=== PATIENT | female | born 1990 | race American Indian/Alaskan Native ===

== ENCOUNTER 2019-02-23 10:17 | Emergency (ER) | payer OTHER ==
[2019-02-23 10:24] VITALS: BP 112/74
[2019-02-23 10:58] LABS: HCG Qualitative,Urine Negative (Negative)
[2019-02-23 11:00] LABS: Bilirubin,Urine NEG (Negative); Blood,Urine MOD (Negative); Color,Urine Yellow (Yellow); Mucus,Urine 1+ /HPF; Protein,Urine <15 mg/dL mg/dL (Negative); Urobilinogen,Urine < 2.0 mg/dL (<2.0)
[2019-02-23 11:18] LABS: Basophils % (Auto) 0.6 % (0.0-1.8); Eosinophils % (Auto) 0.4 % (0.0-4.3); Hematocrit 39.4 % (30.3-42.9); Hemoglobin 13.7 gm/dl (10.1-14.3); Lymphocytes % (Auto) 49.9 % (13.4-35.0); Mean Corpuscular HGB Conc 35 % (30-34); Mean Corpuscular Volume 98 fl (79-97); Monocytes # (Auto) 0.3 K/mm3 (0.0-0.8); Monocytes % (Auto) 8.1 % (0.0-7.3); Platelet Count 170 K/mm3 (140-440); Red Blood Count 4.01 M/mm3 (3.65-5.03); Red Cell Distribution Width 12.6 % (13.2-15.2)
[2019-02-23 11:38] LABS: BUN/Creatinine Ratio 16; Blood Urea Nitrogen 13 mg/dL (7-17); Calcium 9.7 mg/dL (8.4-10.2); Hemolysis Index 7
--- NOTE | 2019-02-23 13:10 | Emergency Department Report ---
ED Dysuria HPI - HPI Chief Complaint: Abdominal Pain Stated Complaint: BLADDER PROBLEMS Time Seen by Provider: 02/23/19 12:00 Duration: 2 Days Location of Discomfort: Flank Severity: Mild Symptoms: Dysuria: Yes, Frequency: Yes, Suprapubic Pain: No, Flank Pain: Yes, Fever: No, Hematuria: No, Abdominal Pain: No, Previous UTI's: Yes ED Review of Systems ROS: Stated complaint: BLADDER PROBLEMS Other details as noted in HPI Comment: All other systems reviewed and negative Constitutional: denies: chills, fever Eyes: denies: eye pain, eye discharge, vision change ENT: denies: ear pain, throat pain Respiratory: denies: cough, shortness of breath, wheezing Cardiovascular: denies: chest pain, palpitations Endocrine: no symptoms reported Gastrointestinal: denies: abdominal pain, nausea, diarrhea Genitourinary: dysuria, frequency, hematuria. denies: urgency, discharge Musculoskeletal: denies: back pain, joint swelling, arthralgia Skin: denies: rash, lesions Neurological: denies: headache, weakness, paresthesias Psychiatric: denies: anxiety, depression Hematological/Lymphatic: denies: easy bleeding, easy bruising ED Past Medical Hx - Past Medical History Previous Medical History?: No - Surgical History Past Surgical History?: No - Social History Smoking Status: Never Smoker Substance Use Type: Alcohol, Marijuana - Medications Home Medications: Home Medications Medication Instructions Recorded Confirmed Last Taken Type Nitrofurantoin Williams/M-Cryst 100 mg PO Q12HR #14 capsule 02/23/19 Unknown Rx [Macrobid CAP] Dysuria Exam - Exam General: Vital signs noted. No distress. Alert and acting appropriately. Exam: Yes Moist Mucous Membranes, No CVA Tenderness, No Abdominal Tenderness, No Rigidity or Guarding Labs: Lab Results 02/23/19 02/23/19 02/23/19 Range/Units 10:33 10:58 10:58 WBC 4.1 L (4.5-11.0) K/mm3 RBC 4.01 (3.65-5.03) M/mm3 Hgb 13.7 (10.1-14.3) gm/dl Hct 39.4 (30.3-42.9) % MCV 98 H (79-97) fl MCH 34 H (28-32) pg MCHC 35 H (30-34) % RDW 12.6 L (13.2-15.2) % Plt Count 170 (140-440) K/mm3 Lymph % (Auto) 49.9 H (13.4-35.0) % Williams % (Auto) 8.1 H (0.0-7.3) % Eos % (Auto) 0.4 (0.0-4.3) % Baso % (Auto) 0.6 (0.0-1.8) % Lymph # 2.0 (1.2-5.4) K/mm3 Williams # 0.3 (0.0-0.8) K/mm3 Eos # 0.0 (0.0-0.4) K/mm3 Baso # 0.0 (0.0-0.1) K/mm3 Seg Neutrophils % 41.0 (40.0-70.0) % Seg Neutrophils # 1.7 L (1.8-7.7) K/mm3 Sodium 140 (137-145) mmol/L Potassium 4.2 (3.6-5.0) mmol/L Chloride 102.6 (98-107) mmol/L Carbon Dioxide 28 (22-30) mmol/L Anion Gap 14 mmol/L BUN 13 (7-17) mg/dL Creatinine 0.8 (0.7-1.2) mg/dL Estimated GFR > 60 ml/min BUN/Creatinine Ratio 16 % Glucose 85 (65-100) mg/dL Calcium 9.7 (8.4-10.2) mg/dL Urine Color Yellow (Yellow) Urine Turbidity Clear (Clear) Urine pH 5.0 (5.0-7.0) Ur Specific [place] 1.025 (1.003-1.030) Urine Protein <15 mg/dl (Negative) mg/dL Urine Glucose (UA) Neg (Negative) mg/dL Urine Ketones Neg (Negative) mg/dL Urine Blood Mod (Negative) Urine Nitrite Neg (Negative) Ur Reducing Substances Not Reportable Urine Bilirubin Neg (Negative) Urine Ictotest Not Reportable Urine Urobilinogen < 2.0 (<2.0) mg/dL Ur Leukocyte Esterase Neg (Negative) Urine WBC (Auto) 4.0 (0.0-6.0) /HPF Urine RBC (Auto) 7.0 (0.0-6.0) /HPF U Epithel Cells (Auto) 1.0 (0-13.0) /HPF Urine Mucus 1+ /HPF Urine HCG, Qual Negative (Negative) ED Course Vital Signs 02/23/19 10:23 Temperature 97.9 F Pulse Rate 50 L Respiratory 16 Rate Blood Pressure 112/74 O2 Sat by Pulse 100 Oximetry ED Medical Decision Making - Lab Data Result diagrams: 02/23/19 10:58 02/23/19 10:58 - Medical Decision Making 29-year-old female presents with a urinary tract infection ED course: Urinalysis is positive for hematuria and normal otherwise, all other labs within normal limits. I discussed this findings with the patient. I discussed the patient to make sure he completes all of the antibiotic dose ev en until symptoms resolve. Patient is in no acute distress, patient also has on instructions were given to him. He had on exam for ED stay. Discussed follow-up with primary care physician. Critical care attestation.: If time is entered above; I have spent that time in minutes in the direct care of this critically ill patient, excluding procedure time. ED Disposition Clinical Impression: Hematuria, Cystitis Disposition: - TO HOME OR SELFCARE Is pt being admited?: No Does the pt Need Aspirin: No Condition: Stable Instructions: Abdominal Pain (ED), Urinary Tract Infection in Women (ED), Flank Pain (ED) Additional Instructions: Make sure to follow up with the primary care physician as discussed. Take all your medications as you've been prescribed. If you have any worsening symptoms or develop new symptoms please return to ED immediately. Prescriptions: Nitrofurantoin Williams/M-Cryst [Macrobid CAP] 100 mg PO Q12HR #14 capsule Referrals: LEANN HERMOSILLO MD [Primary Care Provider] - 3-5 Days [facility] [Outside] - 3-5 Days [facility] [Outside] - 3-5 Days Forms: Work/School Release Form(ED) Time of Disposition: 13:11
== END 2019-02-23 13:26 | disposition home or self-care (01) ==
LOC: ED 10:17
DX: N30.90 Cystitis, unspecified without hematuria (principal); F12.10 Cannabis abuse, uncomplicated
CPT/HCPCS: 36415; 80048; 81001; 81025; 85025; 87076; 87086; 87186; 99283

== ENCOUNTER 2020-06-05 18:43 | Emergency (ER) | payer MEDICAID ==
[2020-06-05 19:31] VITALS: BP 136/67
--- NOTE | 2020-06-05 20:28 | XRay Report ---
CHEST PA AND LATERAL VIEWS INDICATION: Productive cough. COMPARISON: None. FINDINGS: Support devices: None. Heart: Within normal limits. Lungs/Pleura: No acute pulmonary or pleural findings. IMPRESSION: 1. No acute findings. Signer Name: Jarad Tillman MD Signed: 06/05/2020 8:23 PM Workstation Name: [id number]
[2020-06-06 02:00] LABS: Hematocrit 42.1 % (30.3-42.9); Hemoglobin 14.5 gm/dl (10.1-14.3); Mean Corpuscular HGB Conc 34 % (30-34); Mean Corpuscular Volume 98 fl (79-97); Platelet Count 266 K/mm3 (140-440); Red Cell Distribution Width 12.5 % (13.2-15.2)
--- NOTE | 2020-06-06 02:08 | Cat Scan Report ---
CT HEAD/BRAIN WO CON INDICATION / CLINICAL INFORMATION: Patient complains of a headache and dizziness.. TECHNIQUE: All CT scans at this location are performed using CT dose reduction for ALARA by means of automated e xposure control. COMPARISON: None available. FINDINGS: The ventricular system is normal in size and configuration. No focal lesion or mass effect is seen. T here is no evidence of intracranial hemorrhage or major vessel occlusion. There is a mild amount of fluid in both maxillary sinuses with a minimal amount of fluid or mucosal t hickening in the sphenoid sinus. The other paranasal sinuses and mastoid air cells are clear. IMPRESSION: 1. No acute intracranial abnormality. 2. Mild bilateral maxillary and sphenoid sinusitis. Signer Name: Serafin Almanzar MD Signed: 06/06/2020 2:03 AM Workstation Name: [id number]
[2020-06-06 02:21] LABS: BUN/Creatinine Ratio 13; Blood Urea Nitrogen 10 mg/dL (7-17); Calcium 10.1 mg/dL (8.4-10.2); Hemolysis Index 33
--- NOTE | 2020-06-06 04:00 | Emergency Department Report ---
ED Dizziness HPI - General Chief Complaint: Dizziness Stated Complaint: DIZZY Time Seen by Provider: 06/06/20 00:21 Source: patient Mode of arrival: Ambulatory Limitations: No Limitations - History of Present Illness Initial Comments: 30-year-old Marshallese female that emerge department complaining of a few few hour history of cough congestion and coryza associated with nausea dull headache off and on and some presyncope clear nasal discharge of unknown etiology. Ports no chest pain, no shortness of breath, no hemoptysis no hematemesis no hematochezia no abdominal pain, no hematuria no dysuria no hematochezia no known contact with the coronavirus no foreign travel. She did take an [employer] earlier which did not resolve her symptoms there have been no provocative factors to her knowledge. MD Complaint: dizziness, lightheadedness Description: lightheadedness History of Same: No History of Trauma: No Severity: mild Improves With: nothing Worsens With: nothing Associated Symptoms: cough, fever/chills, other (Patient complaining above light headedness and dizziness. States that she does not get headaches this is very unusual for her and the discomfort she is having is becoming to get increasingly more uncomfortable. She reports having's a vague episode of of blurred vision but no loss of vision. She reports no fever. No head trauma.). denies: chest pain, confusion, loss of appetite, syncope, weakness - Related Data Previous Rx's Medication Instructions Recorded Last Taken Type Nitrofurantoin [place]/M-Cryst 100 mg PO Q12HR #14 capsule 02/23/19 Unknown Rx [Macrobid CAP] Amoxicillin/Potassium Clav 1 each PO BID #20 tablet 06/06/20 Unknown Rx [Augmentin 875-125 Tablet] predniSONE [Deltasone] 20 mg PO QDAY #7 tab 06/06/20 Unknown Rx Allergies Allergy/AdvReac Type Severity Reaction Status Date / Time No Known Allergies Allergy Unverified 02/23/19 10:18 ED Review of Systems ROS: Stated complaint: DIZZY Other details as noted in HPI Comment: All other systems reviewed and negative ED Past Medical Hx - Past Medical History Previous Medical History?: No - Surgical History Past Surgical History?: No - Social History Smoking Status: Never Smoker Substance Use Type: None - Medications Home Medications: Home Medications Medication Instructions Recorded Confirmed Last Taken Type Nitrofurantoin Atlantic/M-Cryst 100 mg PO Q12HR #14 capsule 02/23/19 Unknown Rx [Macrobid CAP] Amoxicillin/Potassium Clav 1 each PO BID #20 tablet 06/06/20 Unknown Rx [Augmentin 875-125 Tablet] predniSONE [Deltasone] 20 mg PO QDAY #7 tab 06/06/20 Unknown Rx ED Physical Exam - General Limitations: No Limitations General appearance: alert, in no apparent distress - Head Head exam: Present: atraumatic, normocephalic - Eye Eye exam: Present: normal appearance, PERRL, EOMI Pupils: Present: normal accommodation - ENT ENT exam: Present: mucous membranes moist, other (Nasal congestion tenderness to percussion of the maxillary sinuses well. Posterior sinus region) - Expanded ENT Exam Expanded TM/Canal exam: Effusion: Right TM Throat exam: Negative: tonsillomegaly, tonsillar exudate, R peritonsillar mass - Neck Neck exam: Present: normal inspection, full ROM - Respiratory Respiratory exam: Present: normal lung sounds bilaterally. Absent: respiratory distress, rales, rhonchi, chest wall tenderness, accessory muscle use, decreased breath sounds - Cardiovascular Cardiovascular Exam: Present: regular rate, normal rhythm. Absent: systolic murmur, diastolic murmur, rubs, gallop - GI/Abdominal GI/Abdominal exam: Present: soft, normal bowel sounds - Extremities Exam Extremities exam: Present: normal inspection, normal capillary refill - Back Exam Back exam: Present: normal inspection. Absent: CVA tenderness (R), CVA tenderness (L) - Neurological Exam Neurological exam: Present: alert, oriented X3, CN II-XII intact - Psychiatric Psychiatric exam: Present: normal affect, normal mood - Skin Skin exam: Present: warm, dry, intact, normal color. Absent: rash ED Course Vital Signs 06/05/20 06/05/20 06/06/20 19:25 19:56 03:55 Temperature 99.1 F 99.1 F Pulse Rate 85 86 Respiratory 18 17 Rate Blood Pressure 136/67 O2 Sat by Pulse 99 100 Oximetry ED Medical Decision Making - Lab Data Result diagrams: 06/06/20 01:19 06/06/20 01:19 - Radiology Data Radiology results: report reviewed Referring Physician:KATERYNA OLGUINPatient Name:ROMAIN BERNARDPatient ID:[id number] of :[id number]:FemaleAccession:[id number] Date:[id number] Status:Finalized Findings [address] [address] Cat Scan Report Signed Patient: ROMAIN BERNARD MR#: [id number] 2 : 1990 Acct:[id number] Age/Sex: 30 / F ADM Date: 06/05/20 Loc: ED Attending Dr: Ordering Physician: BRIGID HODGE Date of Service: 06/06/20 Procedure(s): CT head/brain wo con Accession Number(s): [id number] cc: BRIGID HODGE CT HEAD/BRAIN WO CON INDICATION / CLINICAL INFORMATION: Patient complains of a headache and dizziness.. TECHNIQUE: All CT scans at this location are performed using CT dose reduction for ALARA by means of automated exposure control. COMPARISON: None available. FINDINGS: The ventricular system is normal in size and configuration. No focal lesion or mass effect is seen. There is no evidence of intracranial hemorrhage or major vessel occlusion. There is a mild amount of fluid in both maxillary sinuses with a minimal amount of fluid or mucosal thickening in the sphenoid sinus. The other paranasal sinuses and mastoid air cells are clear. IMPRESSION: 1. No acute intracranial abnormality. 2. Mild bilateral maxillary and sphenoid sinusitis. Signer Name: Serafin Almanzar MD Signed: 06/06/2020 2:03 AM Workstation Name: [id number] Transcribed By: RT Dictated By: Serafin Almanzar MD Electronically Authenticated By: Serafin Almanzar MD Signed Date/Time: 06/06/20202 DD/ 0 TD/TT: Referring Physician:GINA BARAJASPatient Name:ROMAIN BERNARDPatient ID:[id number] of :[id number]:FemaleAccession:[id number] Date:5779-91-06Qpgwjk Status:Finalized Findings [address] [address] XRay Report Signed Patient: ROMAIN BERNARD MR#: [id number] 2 : 1990 Acct:[id number] Age/Sex: 30 / F ADM Date: 06/05/20 Loc: ED Attending Dr: Ordering Physician: BRIGID GAMA Date of Service: 06/05/20 Procedure(s): XR chest routine 2V Accession Number(s): [id number] cc: BRIGID GAMA Fluoro Time In Minutes: CHEST PA AND LATERAL VIEWS INDICATION: Productive cough. COMPARISON: None. FINDINGS: Support devices: None. Heart: Within normal limits. Lungs/Pleura: No acute pulmonary or pleural findings. IMPRESSION: 1. No acute findings. Signer Name: Jarad Tillman MD Signed: 06/05/2020 8:23 PM Workstation Name: [id number] Transcribed By: ADINA Dictated By: Jarad Tillman MD Electronically Authenticated By: Jarad Tillman MD Signed Date/Time: 06/05/202022 DD/ 22 TD/TT: - Medical Decision Making This 30-year-old femalepatient presents with symptoms suspicious for likely viral upper respiratory tract infection with evolving sinusitis. Differential includes bacterial pneumonia, sinusitis, allergic rhinitis,, asthma. Do not suspect underlying Cardiopulmonary process. I considered but think unlikely dangerous cause of this patient symptoms to include acute coronary syndrome, CHF or COPD exacerbations, pneumonia, pneumothorax. Patient is nontoxic appearing and not in need of emergent medical intervention. Presentation not consistent with acute bacterial pneumonia, influenza, asthma, transient airway hyperrespons iveness. Presentation not consistent with chronic causes of cough (including GERD, asthma, postnasal discharge, medication side effect, CHF, lung cancer or mass). This patient presents with a headache most consistent with. Differential diagnosis includes migraine versus tension type headache. No headache red flags. Neurologic exam without evidence of meningismus, focal neurologic findings.Based on the patient's history and physical there is very low clinical suspicion for significant intracranial pathology. The headache was NOT sudden onset, NOT maximal at onset, there are NO neurologic findings, the patient does NOT have a fever, the patient does NOT have any jaw claudication, the patient does NOT endorse a clotting disorder, patient DENIES any trauma or eye pain and the headache is NOT associated with dizziness or ataxia. Presentation not consistent with acute intracranial bleed to include SAH (lack of risk factors, headache history). Presentation not consistent with acute [employer] infection to include meningitis or brain abscess, Temporal arteritis unlikely, as is acute angle closure glaucoma given history and physical findings. Presentation not consistent with other acute, emergent causes of headache at this time. Plan to treat symptomatically with pain medication. No indication for imaging/LP at this time. CT brain was obtained due to the headache duration dizziness and her unfamiliar history with headache, Chest x-ray was normal Plan: Reassurance, reassessment, [id number] medications, discharge with PCP follow-up Critical care attestation.: If time is entered above; I have spent that time in minutes in the direct care of this critically ill patient, excluding procedure time. ED Disposition Clinical Impression: Dizziness, Sinusitis Disposition: DC- TO HOME OR SELFCARE Is pt being admited?: No Does the pt Need Aspirin: No Condition: Stable Instructions: Sinusitis (ED), Meniere Disease (ED), Lightheadedness (ED), Dizziness (ED) Prescriptions: Amoxicillin/Potassium Clav [Augmentin 875-125 Tablet] 1 each PO BID #20 tablet predniSONE [Deltasone] 20 mg PO QDAY #7 tab Referrals: PRIMARY MD JOSE [Primary Care Provider] - 3-5 Days URMILA DOW MD [Staff Physician] - 3-5 Days
== END 2020-06-06 03:55 | disposition home or self-care (01) ==
LOC: ED 18:43
DX: J32.9 Chronic sinusitis, unspecified (principal); R42 Dizziness and giddiness; Z79.2 Long term (current) use of antibiotics; Z79.899 Other long term (current) drug therapy
CPT/HCPCS: 36415; 70450; 71046; 80048; 84703; 85027